=== PATIENT | male | born 1990 | race Caucasian/White ===

== ENCOUNTER 2017-01-18 21:23 | Emergency (ER) | payer SELFPAY ==
[2017-01-18 21:56] VITALS: BP 140/82; PULSE 115; TEMP 98.9; BMI 25.0
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
[2017-01-18] MEDS ORDERED: IBUPROFEN 600 MG TABLET (FP) PO ONE ×2 (22:03→22:22)
== END 2017-01-19 01:10 | disposition home or self-care (01) ==
LOC: JER 21:23
DX: S09.93XA Unspecified injury of face, initial encounter (principal); S09.90XA Unspecified injury of head, initial encounter; Y04.2XXA Assault by strike against or bumped into by another person, initial encounter; Y93.89 Activity, other specified; Y92.009 Unspecified place in unspecified non-institutional (private) residence as the place of occurrence of the external cause
CPT/HCPCS: 70150-TC; 70450-TC; 70486-TC; 71020-TC; 72125-TC; 99282-25

== ENCOUNTER 2024-05-11 19:35 | Emergency (ER) | payer SELFPAY ==
[2024-05-11 19:56] VITALS: BP 154/82; PULSE 110; RESP 18; TEMP 97.7; BMI 31.9
[2024-05-11] MEDS ORDERED: MORPHINE SULFATE 2 MG/ML SYRINGE ONE (20:51)
[2024-05-11] MEDS ORDERED: ACETAMINOPHEN 325 MG TABLET (FP) ONE (20:51)
[2024-05-11] MEDS: ACETAMINOPHEN 325 MG TABLET (FP) PO ONE (21:11)
[2024-05-11] MEDS: morphine CARPU-JECT 2 MG/1 ML DISP.SYRIN IVPUSH ONE (21:11)
== END 2024-05-11 22:41 | disposition home or self-care (01) ==
LOC: JER 19:35
PROC: 3E033NZ Introduction of Analgesics, Hypnotics, Sedatives into Peripheral Vein, Percutaneous Approach (ICD-10-PCS; principal; 2024-05-11)
DX: S42.021A Displaced fracture of shaft of right clavicle, initial encounter for closed fracture (principal); W01.0XXA Fall on same level from slipping, tripping and stumbling without subsequent striking against object, initial encounter; Y93.66 Activity, soccer
CPT/HCPCS: 71045-TC-FY; 73030-TC-RT-FY; 99284-25